=== PATIENT | female | born 1965 | race Caucasian/White ===

== ENCOUNTER 2021-06-06 06:56 | Emergency (ER) | payer OTHER ==
[~2021-06-06] VITALS: Ht 175.3 cm; Wt 104.3 kg
[2021-06-06] MEDS ORDERED: LACTATED RINGER'S 1,000 ML INJ ONE (07:15)
[2021-06-06] MEDS ORDERED: FENTANYL CITRATE/PF 100MCG/2 ML INJ IV PRN (07:15)
[2021-06-06] MEDS ORDERED: ONDANSETRON HCL INJ 2MG/ML 2ML 2 MG/ML VIAL IV STA (07:15)
[2021-06-06 07:26] LABS: BASOPHILS # (AUTO) 0.1 (0.0-0.1); BASOPHILS % 0.5 % (0.0-1.0); EOSINOPHILS % 0.1 % (0.0-6.0); HEMATOCRIT 40.3 % (34.2-44.1); LYMPHOCYTES # (AUTO) 1.7 (1.0-3.2); LYMPHOCYTES % 12.6 % (18.0-39.1); MEAN CORPUSCULAR HEMOGLOBIN 28.4 pg (28-32); MEAN CORPUSCULAR HGB CONC 32.3 g/dL (31-35); MEAN CORPUSCULAR VOLUME 88.2 fL (81-99); MONOCYTES # (AUTO) 0.7 (0.2-0.8); MONOCYTES % 5.1 % (4.4-11.3); NEUTROPHILS # (AUTO) 10.8 (2.1-6.9); NEUTROPHILS % 81.2 % (38.7-80.0); PLATELET COUNT 403 x10e3/uL (140-360); RED BLOOD COUNT 4.57 x10e6/uL (3.6-5.1); RED CELL DISTRIBUTION WIDTH 14.6 % (11.7-14.4)
[2021-06-06 07:45] LABS: CLARITY,URINE SL CLOUDY (CLEAR); COLOR,URINE YELLOW (YELLOW); LEUKOCYTE ESTERASE ,URINE TRACE (NEGATIVE); NITRITE,URINE NEGATIVE (NEGATIVE); PROTEIN,URINE DIPSTICK 1+ (NEGATIVE)
[2021-06-06 07:46] LABS: KETONES,URINE 2+ (NEGATIVE); URINE UROBILINOGEN 0.2 mg/dL (0.2 - 1)
[2021-06-06 07:58] LABS: ALBUMIN 3.8 g/dL (3.5-5.0); ANION GAP 15.8 mmol/L (8-16); CALCIUM 9.4 mg/dL (8.4-10.2); CREATININE, SERUM 0.64 mg/dL (0.57-1.11); POTASSIUM 3.8 mmol/L (3.5-5.1)
[2021-06-06 08:20] LABS: BACTERIA,URINE MANY /HPF; EPITHELIAL CELLS,URINE MANY /LPF; RBC,URINE 0-5 /HPF (0-5)
[2021-06-06] MEDS ORDERED: MORPHINE SULFAT15 MG PO (09:03)
[2021-06-06] MEDS ORDERED: ONDANSETRON ODT4 MG PO (09:04)
[2021-06-06] MEDS ORDERED: CEFDINIR300 MG PO (09:04)
== END 2021-06-06 09:27 | disposition home or self-care (01) ==
LOC: ER 07:04
DX: R10.13 Epigastric pain (principal); K80.20 Calculus of gallbladder without cholecystitis without obstruction; R11.2 Nausea with vomiting, unspecified; R94.31 Abnormal electrocardiogram [ECG] [EKG]
CPT/HCPCS: 36415; 71045; 76705; 80053; 81001; 83690; 84484; 85025; 93005; 99284; C9113; J2405; J3010; J7121